=== PATIENT | female | born 1975 | race Caucasian/White ===

== ENCOUNTER 2024-09-02 13:48 | Emergency (ER) | payer SELFPAY ==
[2024-09-02 13:50] VITALS: BP 135/97; PULSE 93; RESP 18; TEMP 36.8; O2SAT 98; BMI 26.6
[2024-09-02 13:54] VITALS: BP 135/97; PULSE 89; RESP 17; TEMP 36.8; O2SAT 97
--- NOTE | 2024-09-02 14:01 | EKG12_ITS ---
Test Reason : SOB Blood Pressure : / mmHG Vent. Rate : 086 BPM Atrial Rate : 086 BPM P-R Int : 146 ms QRS Dur : 078 ms QT Int : 378 ms P-R-T Axes : -18 079 049 degrees QTc Int : 452 ms Normal sinus rhythm Normal ECG When compared with ECG of 01-NOV-2019 10:38, Questionable change in QRS axis T wave amplitude has increased in Anterolateral leads Confirmed by TOÑO DE LA ROSA, MAXIMILIANO ([id number]), associate editor ROSMERY MENDEZ ([id number]) on 09/05/2024 11:36:34 AM Referred By: Confirmed By:MAXIMILIANO LUNDBERG MD
--- NOTE | 2024-09-02 14:01 | RAD_ITS ---
HISTORY: DYSPNEA. TECHNIQUE: XR Chest 2 Views. COMPARISON: None. FINDINGS: CARDIOMEDIASTINAL BORDERS: Cardiac silhouette within normal limits in size. Mediastinal contour unremarkable. LUNGS: Radiographically clear. PLEURA: No pleural effusion or pneumothorax seen. OSSEOUS STRUCTURES: Unremarkable. RAD/Chest PA and Lateral IMPRESSION: No acute cardiopulmonary process identified. Electronically Signed: Madelyn Branham MD at 15:17 EDT ,
--- NOTE | 2024-09-02 14:01 | EX.ED.DYSGE1 ---
HPI History of Present Illness Chief Complaint: Shortness of Breath Detail of Chief Complaint: Bleeding from incision site and shortness of breath Informant: patient and family Onset/Context/Timing Onset: Today and Yesterday (Bleeding started yesterday.) Context: Sudden Onset (Shortness of breath started this morning) Current Severity: Mild Maximum Severity: Mild Worsened by: Patient is on Eliquis 2.5 mg. Relieved by: Nothing Associated Symptoms Associated Symptoms: Complaints of shortness of breath. Narrative Narrative: Patient is a 48-year-old woman. She had a total abdominal hysterectomy by Dr. Florian at [facility]. Mother states she had a 4 x 6 cm ovarian mass. Pathology is pending. She is present on Eliquis 2.5 mg twice daily. She presents because of shortness of breath started this morning at bleeding from incision site which has gotten worse that started yesterday. She denies orthostatic symptoms. She denies fever, chills night sweats. She denies upper respiratory infectious symptoms. She denies pleuritic chest pain. She denies any type of chest pain. She has minimal abdominal pain. Prior similar symptoms: No Recent Illness/Hospitalization: Yes [facility] Medical History (Updated 09/02/24 @ 16:[address] Nathanael Rodas MD) Ovarian tumor Allergy/AdvReac Type Severity Reaction Status Date / Time No Known Allergies Allergy Verified 09/02/24 13:50 Surgical History History of hysterectomy Social History (Updated 09/02/24 @ 15:[address] Nathanael Rodas MD) household members: family Smoking Status: Never smoker substance use type: does not use ROS ROS ED Constitutional Constitutional ED: Denies chills, fever(s), subjective or sweats ENT ENT ED: Denies rhinorrhea or sore throat Cardiovascular Cardiovascular: Denies chest pain, orthopnea, palpitations, paroxysmal nocturnal dyspnea or racing heartbeat Respiratory/Chest Respiratory/Chest: Reports dyspnea and dyspnea on exertion; Denies cough, orthopnea, paroxysmal nocturnal dyspnea or sputum Gastrointestinal Gastrointestinal: Denies abdominal pain, melena, nausea or vomiting Genitourinary Genitourinary ED: Denies dysuria, hematuria or urinary frequency Musculoskeletal Musculoskeletal: Denies back pain or neck pain Integumentary Denies rash Neurologic Neurologic: Denies paresthesias or weakness Hematologic/Lymphatic Hematologic/Lymphatic: Reports easy bruising EXAM Physical Exam Const Vital Signs: 09/02/24 13:50 09/02/24 13:54 09/02/24 13:57 Temperature 98.3 F 98.3 F Temperature Source Oral Oral Pulse Rate 93 89 Respiratory Rate 18 17 Respiratory Effort Normal Non-Labored Respiratory Depth Normal Respiratory Pattern Normal Blood Pressure 135/97 H 135/97 H Blood Pressure Mean 109 109 Pulse Ox 98 97 Oxygen Delivery Method Room Air Room Air Room Air 09/02/24 15:00 09/02/24 15:30 Temperature Temperature Source Pulse Rate 68 68 Respiratory Rate 16 17 Respiratory Effort Respiratory Depth Respiratory Pattern Blood Pressure 150/86 H 139/94 H Blood Pressure Mean 107 106 Pulse Ox 99 99 Oxygen Delivery Method Positive well nourished and well developed Constitutional Narrative: Patient's blood pressure slightly elevated and her vitals are otherwise normal. She appears pale. She is paler than at the time of discharge per mother. General Appearance ED: well developed, NAD and pallor HEENT Reports moist mucous membranes HEENT Narrative: Posterior pharynx is normal. Ears normal. Nares patent. Eyes PERRL and EOMs intact bilaterally General Eye ED: Negative for pale conjunctiva or scleral icterus Neck no lymphadenopathy, supple and no JVD Resp normal respiratory effort and clear to auscultation bilaterally Cardio regular rate, regular rhythm, S1 normal heart sound, S2 normal heart sound and no murmurs GI non-distended and no masses; Negative for normal to inspection, nondistended, normoactive bowel sounds, non-tender or hepatosplenomegaly GI Narrative: Inferior portion of the incision has slight bleeding. The incision is intact. There is no erythema, warmth induration or fluctuance. Extremity normal to inspection Extremity Narrative: There is no asymmetry, swelling, discoloration, leg vein distention, palpable cords or tenderness along the distribution of the deep venous system. Neuro oriented x3 and CN's II-XII intact bilaterally Sensorium / Orientation: alert Psych mental status grossly normal Skin no rashes or lesions noted, No no wounds and skin turgor normal General Skin Exam: elasticity normal and pallor; Negative for jaundice MDM MDM MDM Narrative Medical decision making narrative: 2 view chest x-ray was obtained to assess for pneumonia, pneumothorax. There is concern patient has a PE. She is on low-dose Eliquis of 2.5 mg. Will obtain D-dimer if elevated and there is no abnormality noted on the EKG or chest x-ray will proceed with CTA. Will obtain CBC to assess white count as well as H&H and she has been bleeding. Suspect he is having more bleeding normal because she is on Eliquis. Renal function is unremarkable. Lab Data Attestation: I reviewed the patient's lab results. Lab results narrative: White count is slightly elevated. Differential is unremarkable. D-dimer is elevated 1.98. In light of the the recent surgery with complaint of dyspnea and elevated D-dimer CTA was obtained. This was obtained because the chest x-ray revealed no abnormality to explain her complaints. I.e. she is not anemic and there is no radiographic abnormality noted on the chest x-ray. Labs: Laboratory Results - last 24 hr 09/02/24 13:57 WBC 11.6 H RBC 4.44 Hgb 13.0 Hct 39.2 MCV 88.3 MCH 29.3 MCHC 33.2 RDW Std Deviation 40.1 RDW Coeff of Byron 12.4 Plt Count 377 MPV 9.1 Immature Gran % (Auto) 0.300 Neut % (Auto) 75.6 H Lymph % (Auto) 16.3 L Scurry % (Auto) 7.2 Eos % (Auto) 0.4 Baso % (Auto) 0.2 Absolute Neuts (auto) 8.8 H Absolute Lymphs (auto) 1.89 Nucleated RBC % 0 D-Dimer Quant (PE/DVT) 1.98 H* Sodium 139 Potassium 3.7 Chloride 105 Carbon Dioxide 30.0 Anion Gap 4 L BUN 14 Creatinine 0.75 Estim Creat Clear Calc 78.55 Est GFR (MDRD) Af Amer 106 Est GFR (MDRD) Non-Af 87 BUN/Creatinine Ratio 18.6 Glucose 144 H Calcium 8.6 Radiography Diagnostic Testing: Clinical Impression(s) from Imaging Studies Chest X-Ray 09/02/24 14:01 IMPRESSION: No acute cardiopulmonary process identified. Electronically Signed: Madelyn Branham MD at 15:17 EDT , Chest CTA 09/02/24 14:38 IMPRESSION: No evidence of pulmonary embolism. Mild pneumoperitoneum, compatible with the history of recent surgery. Electronically Signed: Madelyn Branham MD at 15:42 EDT , Treatment and Re-Evaluation :: Patient and family were told all blood results and reason for CAT scan. Plan is to discharge to home. Discharge Plan Triage Chief Complaint: Shortness of Breath Other Complaint: Wound Check ED Provider: Nathanael Rodas Dx/Rx/DC Orders Clinical Impression: Acute dyspnea, Post-op bleeding, Anticoagulant-induced bleeding Instructions: ED Dyspnea, ED Post Op Wound Check, Bleeding Primary Care Provider: Care Physician,No Primary Referrals: Magnus Florian MD [Non-Staff] - 3-5 Days if not improving Care Physician,No Primary [Primary Care Provider] - Print Language: Pashto Disposition Disposition: Home, Self Care
--- NOTE | 2024-09-02 14:03 | NURSING ---
NO OLD EKGS
[2024-09-02 14:10] LABS: Absolute Lymphocyte Count 1.89 X10^3/uL (0.83-4.51); Absolute Neutrophil Count 8.8 X10^3/uL (2.0-7.7); Basophil# 0.02 X10^3/uL; Basophil% 0.2 % (0-1); Eosinophil# 0.05 X10^3/uL; Eosinophils% 0.4 % (0-5); Hematocrit 39.2 % (37-47); Lymphocyte # 1.89 X10^3/ul (0.83-4.51); Lymphocyte % 16.3 % (19-41); Mean Corp Hgb Conc 33.2 g/dL (32-36); Mean Corpuscular Hgb 29.3 pg (27.0-32.0); Mean Corpuscular Volume 88.3 fL (81-99); Mean Platelet Vol. 9.1 fl (6.2-12.0); Monocyte# 0.83 X10^3/uL; Monocyte% 7.2 % (0-10); NRBC Flagged by Analyzer 0 % (0-5); Neutrophil # 8.76 X10^3/uL (2.7-7.7); Neutrophil % 75.6 % (47-70); Platelet Count 377 K/mm3 (150-450); RBC Distribution Width CV 12.4 % (11.6-14.6); RBC Distribution Width SD 40.1 fl (35.1-43.9); Red Blood Count 4.44 M/mm3 (4.2-5.4); White Blood Count 11.6 K/mm3 (4.4-11.0)
[2024-09-02 14:22] LABS: Anion Gap 4 (5-15); BUN 14 mg/dL (7-18); BUN/Creat Ratio 18.6 RATIO (10-20); Calcium,Total 8.6 mg/dL (8.5-10.1); Chloride 105 mmol/L (98-107); Creatinine, Serum 0.75 mg/dL (0.55-1.02); EST Glomerular Filtration Rate 87 mL/min (>60); Est Glom Filt Rate - Afr Amer 106 mL/min (>60); Estimated Creatinine Clearance 78.55 ml/min; Glucose 144 mg/dL (74-106); Potassium 3.7 mmol/L (3.5-5.1); Sodium Level 139 mmol/L (136-145)
[2024-09-02 14:28] LABS: D-Dimer Quantitative (DVT/PE) 1.98 FEU/ug/m (0.27-0.49)
--- NOTE | 2024-09-02 14:38 | CT_ITS ---
HISTORY: Dyspnea, elevated D-dimer, recent pelvic surgery f. TECHNIQUE: CT angiogram of the chest was performed after the intravenous administration of 75 mL Isovue-370. Post-processing of the angiographic images was performed with multiplanar reformation and 3D reconstruction. Individualized dose optimization techniques were used for this CT. 994 images. COMPARISON: XR same day. FINDINGS: CENTRAL AIRWAYS: Minimal dependent of the fluid in the upper trachea. LUNGS: Very mild apical scarring. Small calcified right upper lobe granulomas PLEURA: No pneumothorax or significant pleural effusion. HEART/PERICARDIUM: Heart within normal limits in size. No pericardial effusion. PULMONARY ARTERIES: No filling defect. AORTA/VESSELS: No thoracic aortic aneurysm or dissection flap. MEDIASTINUM/ELIZABETH: No pathologically enlarged lymph nodes. OSSEOUS STRUCTURES: Intact. UPPER ABDOMEN: Mild free air. CT/CTA Chest W/WO Contrast IMPRESSION: No evidence of pulmonary embolism. Mild pneumoperitoneum, compatible with the history of recent surgery. Electronically Signed: Madelyn Branham MD at 15:42 EDT ,
[2024-09-02 15:00] VITALS: BP 150/86; PULSE 68; RESP 16; O2SAT 99
[2024-09-02 15:30] VITALS: BP 139/94; PULSE 68; RESP 17; O2SAT 99
[2024-09-02 16:43] VITALS: BP 134/96; PULSE 68; RESP 18; TEMP 36.6; O2SAT 99
== END 2024-09-02 16:44 | disposition home or self-care (01) ==
PROVIDERS: Emergency Provider Emergency Medicine; Visit Provider Emergency Medicine
DX: R06.00 Dyspnea, unspecified (principal); Z90.710 Acquired absence of both cervix and uterus; Z79.01 Long term (current) use of anticoagulants; R23.3 Spontaneous ecchymoses; D68.32 Hemorrhagic disorder due to extrinsic circulating anticoagulants; T45.515A Adverse effect of anticoagulants, initial encounter; R03.0 Elevated blood-pressure reading, without diagnosis of hypertension
CPT/HCPCS: 71046; 71275; 80048; 85025; 85379; 93005; 99285; Q9967; A4216